=== PATIENT | male | born 1975 | race Caucasian/White ===

== ENCOUNTER 2017-04-12 10:34 | Emergency (ER) | payer BC ==
[~2017-04-12] VITALS: Ht 193 cm; Wt 104.3 kg
[2017-04-12 10:50] VITALS: BP 159/94
--- NOTE | 2017-04-12 10:57 | PHYS DOC ---
Past Medical History Past Medical History: Depression, Other Additional Past Medical Histor: back , low testoserone Adult General Chief Complaint Chief Complaint: UPPER EXTREMITY SWELLING HPI HPI Patient is a 41 year old male presents to the emergency department complaining of left elbow pain and discomfort since Monday. He denies any injuries or trauma. He does state that the arm felt really warm and tender with swelling down to the mid forearm. He states that he was seen in urgent care yesterday and was started on some clindamycin. Patient states that he was concerned of an infection and wanted to have this looked at further as he is leaving to go out of the [place] a [place]. Patient states his immunizations are up-to-date. Review of Systems Review of Systems Constitutional: Denies fever or chills [] Eyes: Denies change in visual acuity, redness, or eye pain [] HENT: Denies nasal congestion or sore throat [] Respiratory: Denies cough or shortness of breath [] Cardiovascular: No additional information not addressed in HPI [] GI: Denies abdominal pain, nausea, vomiting, bloody stools or diarrhea [] : Denies dysuria or hematuria [] Musculoskeletal: Denies back pain. C/o left elbow pain and discomfort Integument: Denies rash or skin lesions [] Neurologic: Denies headache, focal weakness or sensory changes [] Endocrine: Denies polyuria or polydipsia [] Allergies Allergies Allergies Coded Allergies Type Severity Reaction Last Updated Verified Penicillins Allergy Unknown 04/12/17 Yes Physical Exam Physical Exam Constitutional: Well developed, well nourished, no acute distress, non-toxic appearance. [] HENT: Normocephalic, atraumatic, bilateral external ears normal, oropharynx moist, no oral exudates, nose normal. [] Eyes: PERRLA, EOMI, conjunctiva normal, no discharge. [] Neck: Normal range of motion, no tenderness, supple, no stridor. [] Cardiovascular:Heart rate regular rhythm, no murmur [] Lungs & Thorax: Bilateral breath sounds clear to auscultation [] Skin: Warm, dry, no erythema, no rash. [] Back: No tenderness Extremities: left elbow tenderness, no cyanosis, no clubbing, ROM intact, no edema. Swelling and warmth noted to the left elbow. Peripheral pulses 2+ cap refill brisk < 2 seconds. Patient with full ROM of the elbow Neurologic: Alert and oriented X 3, normal motor function, normal sensory function, no focal deficits noted. [] Psychologic: Affect normal, judgement normal, mood normal. [] Current Patient Data Vital Signs Vital Signs Date Time Temp Pulse Resp B/P (MAP) Pulse Ox O2 Delivery O2 Flow Rate FiO2 04/12/17 10:50 98.3 86 16 97 Room Air 98.3 Lab Values Laboratory Tests Test 04/12/17 11:18 White Blood Count 10.6 x10^3/uL (4.0-11.0) Red Blood Count 5.34 x10^6/uL (4.30-5.70) Hemoglobin 15.8 g/dL (13.0-17.5) Hematocrit 46.1 % (39.0-53.0) Mean Corpuscular Volume 86 fL (79-100) Mean Corpuscular Hemoglobin 30 pg (25-35) Mean Corpuscular Hemoglobin Concent 34 g/dL (31-37) Red Cell Distribution Width 14.0 % (11.5-14.5) Platelet Count 204 x10^3/uL (140-400) Neutrophils (%) (Auto) 79 % (31-73) H Lymphocytes (%) (Auto) 12 % (24-48) L Monocytes (%) (Auto) 8 % (0-9) Eosinophils (%) (Auto) 1 % (0-3) Basophils (%) (Auto) 0 % (0-3) Neutrophils # (Auto) 8.3 x10^3uL (1.8-7.7) H Lymphocytes # (Auto) 1.3 x10^3/uL (1.0-4.8) Monocytes # (Auto) 0.9 x10^3/uL (0.0-1.1) Eosinophils # (Auto) 0.1 x10^3/uL (0.0-0.7) Basophils # (Auto) 0.0 x10^3/uL (0.0-0.2) Erythrocyte Sedimentation Rate 3 (0-15) Sodium Level 142 mmol/L (136-145) Potassium Level 4.0 mmol/L (3.5-5.1) Chloride Level 106 mmol/L (98-107) Carbon Dioxide Level 27 mmol/L (21-32) Anion Gap 9 (6-14) Blood Urea Nitrogen 20 mg/dL (8-26) Creatinine 0.9 mg/dL (0.7-1.3) Estimated GFR (Cockcroft-Gault) 93.0 BUN/Creatinine Ratio 22 (6-20) H Glucose Level 97 mg/dL (70-99) Calcium Level 9.7 mg/dL (8.5-10.1) Total Bilirubin 0.7 mg/dL (0.2-1.0) Aspartate Amino Transferase (AST) 23 U/L (15-37) Alanine Aminotransferase (ALT) 34 U/L (16-63) Alkaline Phosphatase 60 U/L (46-116) C-Reactive Protein, Quantitative 8.0 mg/L (0-3.3) H Total Protein 7.1 g/dL (6.4-8.2) Albumin 3.8 g/dL (3.4-5.0) Albumin/Globulin Ratio 1.2 (1.0-1.7) Laboratory Tests 04/12/17 11:18 Laboratory Tests 04/12/17 11:18 EKG EKG [] Radiology/Procedures Radiology/Procedures [facility] [address] [place] [address] IMAGING REPORT Signed PATIENT: MORGAN WARNER ACCOUNT: [id number] : 1975 LOCATION: ER AGE: 41 SEX: M EXAM STATUS: REG ER ORD. PHYSICIAN: BART BARKER APRN REASON: pain and swelling to the left elbow PROCEDURE: ELBOW LEFT 3V Left elbow, 3 views, 04/12/2017: History: Pain and swelling No fracture or dislocation is identified. No significant arthritic change is seen. No joint effusion is evident. There is mild soft tissue swelling posteriorly. IMPRESSION: No significant bony abnormality is detected. DICTATED and SIGNED BY: DELMIS CASTELLANO MD DATE: 04/12/17 1114 CC: BART BARKER APRN; NO PCP; NON,STAFF ~ [] Course & Med Decision Making Course & Med Decision Making Pertinent Labs and Imaging studies reviewed. (See chart for details) CBC was normal CMP normal as are was normal C-reactive protein was elevated. X- ray of the elbow was normal. Patient is on clindamycin at the current time I'll have him continue the clindamycin with ibuprofen for pain and discomfort. We'll place an Lance wrap on the elbow for comfort and support. Patient was provided with lab results and x-ray results. He'll be discharged home in stable condition signs symptoms to return back to the emergency department as been provided. [] Dragon Disclaimer Dragon Disclaimer This electronic medical record was generated, in whole or in part, using a voice recognition dictation system. Departure Departure Impression: Primary Impression: Elbow pain, left Disposition: HOME, SELF-CARE Condition: STABLE Referrals: NO PCP (PCP) Patient Instructions: Cellulitis, [id number] Additional Instructions: Activity as tolerated. Medication as prescribed. Continue the clindamycin your prescribed at urgent care. Lance wrap to the left elbow for comfort and support. Elevation as much as possible. Ibuprofen 800 mg every 8 hours with food stop taking few develop an upset stomach. Follow-up with her primary care physician in the next week. Return back to emergency prior signs symptoms of become worse. BART BARKER DIRECTOR OF CONSERVATION April 12, 2017 10:57
--- NOTE | 2017-04-12 11:18 | RAD ---
Left elbow, 3 views, 04/12/2017: History: Pain and swelling No fracture or dislocation is identified. No significant arthritic change is seen. No joint effusion is evident. There is mild soft tissue swelling posteriorly. IMPRESSION: No significant bony abnormality is detected.
[2017-04-12 11:28] LABS: BASO % 0 % (0-3); EOS % 1 % (0-3); HEMATOCRIT 46.1 % (39.0-53.0); HEMOGLOBIN 15.8 g/dL (13.0-17.5); LYMPH # 1.3 x10^3/uL (1.0-4.8); LYMPH % 12 % (24-48); MEAN CORPUSCULAR HEMOGLOBIN 30 pg (25-35); MEAN CORPUSCULAR HGB CONC 34 g/dL (31-37); MEAN CORPUSCULAR VOLUME 86 fL (79-100); MONO % 8 % (0-9); NEUT % 79 % (31-73); PLATELET COUNT 204 x10^3/uL (140-400); RED BLOOD COUNT 5.34 x10^6/uL (4.30-5.70); WHITE BLOOD COUNT 10.6 x10^3/uL (4.0-11.0)
[2017-04-12 11:38] LABS: CALCIUM 9.7 mg/dL (8.5-10.1); CREATININE 0.9 mg/dL (0.7-1.3)
[2017-04-12 11:43] LABS: ALBUMIN 3.8 g/dL (3.4-5.0); ALBUMIN/GLOBULIN RATIO 1.2 (1.0-1.7); TOTAL BILIRUBIN 0.7 mg/dL (0.2-1.0); TOTAL PROTEIN 7.1 g/dL (6.4-8.2)
== END 2017-04-12 13:13 | disposition home or self-care (01) ==
LOC: ER 10:34
DX: M25.522 Pain in left elbow (principal); F32.9 Major depressive disorder, single episode, unspecified; Z88.0 Allergy status to penicillin
CPT/HCPCS: 36415; 73080; 80053; 85027; 85651; 86140; 99285

== ENCOUNTER → 2017-07-17 | Outpatient (CLI) | payer BC ==
--- NOTE | 2017-07-17 15:49 | KCIC ---
Examination: MRI left elbow without contrast HISTORY: History of left elbow pain COMPARISON: None available TECHNIQUE: Multiple, multisequence MR imaging of the left elbow was performed without contrast FINDINGS: The attachment of the triceps tendon to the olecranon process grossly appears intact. The attachment of the brachialis tendon, Biceps tendon grossly appears intact. The muscle bulk grossly appears unremarkable. The alignment of the common extensor tendon to the lateral epicondyle grossly appears intact. There is increased T2 signal identified at the attachment of the common flexor tendon to the medial epicondyle or subtle partial tearing of the common flexor tendon at its attachment to the medial epicondyle. The visualized lateral collateral ligamentous complex grossly appears intact Small elbow joint effusion is noted. There is no acute fracture identified. The visualized ulnar nerve in cubital tunnel grossly appears unremarkable. Impression: 1. Mild increased T2 signal identified around the site of attachment of the common flexor tendon to the medial epicondyle likely medial epicondylitis or partial tearing of the common flexor tendon at its attachment to the medial epicondyle. 2. Small elbow joint effusion. Electronically signed by: Elias Solares MD (07/17/2017 3:45 PM) [id number]
== END | disposition home or self-care (01) ==
LOC: KCIC MRI 14:24
PROVIDERS: ATTEND Physician Assistant Surgical
DX: M25.422 Effusion, left elbow (principal)
CPT/HCPCS: 73221